=== PATIENT | female | born 1980 | race Caucasian/White ===

== ENCOUNTER 2018-07-07 07:20 | Inpatient (IN) ==
--- NOTE | 2018-07-06 18:04 | MH ---
cc: Vitor Crawley MD DATE OF ADMISSION: 07/07/2018 ADMITTING DIAGNOSIS: 1. Term . 2. Advanced paternal age. 3. Previous . HISTORY OF PRESENT ILLNESS: The patient is a 38-year-old white female, para 3-0-0-4, with an EDC of 07/05/2018 by early ultrasound. PAST OB HISTORY: Notable for two vicente deliveries and for twins in 2010. She is now post dates, admitted for repeat section. PAST SURGICAL HISTORY: Third molars in childhood, in 2010. MEDICATIONS: Vitamins. ALLERGIES: SULFA. TRANSFUSIONS: None. SOCIAL HISTORY: , employed. Alcohol, tobacco and drugs are none. FAMILY HISTORY: Noncontributory. REVIEW OF SYSTEMS: Negative. PHYSICAL EXAMINATION: GENERAL: This is a well-nourished, well-developed white female. VITAL SIGNS: Stable. HEENT: Normal. CHEST: Clear. HEART: Regular rate. BREASTS: Symmetrical. ABDOMEN: Gravid. EFW of 3100 grams. Cervix is closed. EXTREMITIES: Normal. LABORATORY DATA: Strep culture is negative. Her last ultrasound on 07/05/2018 to vertex presentation, normal fluid, but the posterior placenta. ASSESSMENT AND PLAN: She is now admitted for repeat section. While in the office, the risks and benefits, and complications were explained and accepted. MD FRANKLYN Ritter/fara , 05:40 PM , 05:44 PM
[2018-07-07 08:56] LABS: Baso % (Auto) 0.2 % (0.0-2.0); Eos # (Auto) 0.1 th/mm3 (0.0-0.4); Eos % (Auto) 1.4 % (0.0-4.0); Hematocrit 35.5 % (35.0-46.0); Hemoglobin 12.6 gm/dL (11.6-15.3); Lymph # (Auto) 1.2 th/mm3 (1.0-4.8); Lymph % (Auto) 14.9 % (9.0-44.0); Mean Corpuscular HGB Conc 35.5 % (32.0-36.0); Mean Corpuscular Hemoglobin 31.5 pg (27.0-34.0); Mean Corpuscular Volume 88.7 fL (80.0-100.0); Mono # (Auto) 0.5 th/mm3 (0.0-0.9); Mono % (Auto) 6.6 % (0.0-8.0); Neut # (Auto) 6.3 th/mm3 (1.8-7.7); Neut % (Auto) 76.9 % (16.0-70.0); Platelet Count 165 th/mm3 (150-450); Red Cell Distribution Width 14.3 % (11.6-17.2); White Blood Count 8.2 th/mm3 (4.0-11.0)
[2018-07-07] MEDS ORDERED: ceFAZolin 2 GM Premix Inj 2 GM/50 ML PIGGYBACK IV.SIG PRN (09:01)
[2018-07-07] MEDS ORDERED: Citric Acid/Sodium Citrate Liq 30 ML UDC PO SCH (09:15)
[2018-07-07] MEDS ORDERED: Morphine Sulfate PF Inj 5 MG/10 ML Ampul ONE (12:09)
[2018-07-07] MEDS ORDERED: Zolpidem Tartrate 5 MG Tablet PO PRN (12:32)
[2018-07-07] MEDS ORDERED: Senna/Docusate Sodium 8.6/50 MG Tablet PO PRN (12:32)
[2018-07-07] MEDS ORDERED: Simethicone 80 MG Chew Tablet PO PRN (12:32)
[2018-07-07] MEDS ORDERED: Oxytocin 30 Units/500ml Premix 30 UNITS/500 ML BAG IV.SIG ONE (12:32)
[2018-07-07] MEDS ORDERED: Naloxone Inj 0.4 MG/ML Vial IV.PUSH PRN (15:05)
--- NOTE | 2018-07-07 15:58 | MP ---
cc: Vitor Crawlye MD DATE OF OPERATION: 07/07/2018 PREOPERATIVE DIAGNOSES: 1. at 40 to 41 weeks. 2. Advanced maternal age. 3. Previous section. POSTOPERATIVE DIAGNOSES: 1. at 40 to 41 weeks. 2. Advanced maternal age. 3. Previous section. PROCEDURE PERFORMED: Repeat low transverse section with scar revision. ANESTHESIA: Spinal. SURGEON: Vitor Crawley MD. MARINE ELECTRICIAN: ARISTIDES Jacobo ESTIMATED BLOOD LOSS: About 500 mL. FLUIDS: 2 liters crystalloid. OBJECTIVE FINDINGS: Following induction of adequate spinal anesthesia, the patient was prepped and draped supine on the operating table, prepped and draped in usual sterile fashion, with the bladder being drained via Christopher catheterization. The old Pfannenstiel incision had experienced a postoperative infection and there was a subcutaneous defect in the middle portion. Using the knife, the old scar was excised down to the fascia, transverse position. The fascia opened transversely, stripped the muscles, rectus muscle in the midline and the peritoneum opened sharply without incident. The bladder flap was taken down sharply and retracted inferiorly with [place] blade. The lower uterine segment incised transversely with a knife and extended with blunt dissection. Membranes were ruptured with clear fluid. Baby in the LOT position. With internal grinding machine operator guidance and fundal pressure, the head delivered easily. The mouth was suctioned and the cord clamped and cut, and the baby passed to awaiting jean team, a vigorous male. Apgars were 9 and 9, weight 8 pounds 8 ounces. Cord blood for typing. The placenta was manually removed and uterine cavity cleaned with laps. Uterus was exteriorized and closed in 2 layers with running suture, first a running locking stitch of 0 Vicryl, second a running imbricating stitch of 0 Vicryl. The posterior inspection of the uterus, tubes and ovaries were normal. The uterus was then placed in the cavity. Irrigation performed. No bleeding was evident. The bladder flap was closed with a running 3-0 Vicryl. The last retractor was removed. Counts were correct and anterior peritoneum closed with running 2-0 Vicryl. At this point, the subcutaneous tissue and fascia were inspected. In the middle 2/3 of the old subcutaneous tissue, there was old necrotic fatty tissue, purplish in nature. This was excised out with the Bovie to restore new unscarred tissue. Hemostasis was obtained with the Bovie. The fascia was then closed with a running stitch of #1 PDS, cut in the midline and tied. Subcutaneous was irrigated, dusted with Andree, and closed with a running stitch of 3-0 Vicryl. Subcutaneous tissue was closed with running 3-0 Monocryl. Dermabond applied and pressure was applied. Counts were correct and the patient was awakened and taken to the recovery room in good condition. MD FRANKLYN Ritter/fabiana/gerson , 01:34 PM , 01:41 PM
[2018-07-07] MEDS ORDERED: Oxytocin 30 Units/500ml Premix 30 UNITS/500 ML BAG IV.SIG PRN (17:32)
[2018-07-07 22:28] LABS: Bilirubin,Urine Negative (Negative); Clarity,Urine Clear (Clear); Color,Urine Yellow (Yellw/Straw); Glucose,Urine (UA) Negative (Negative); Leukocyte Esterase,Urine Negative (Negative); Mucus,Urine Few /lpf (Occasional); Nitrite,Urine Negative (Negative); Specific Gravity,Urine 1.019 (1.002-1.035); Squamous Epithelial Cell,Urine <1 /hpf (0-5)
[2018-07-08 07:41] LABS: Baso # (Auto) 0.1 th/mm3 (0.0-0.2); Baso % (Auto) 0.4 % (0.0-2.0); Eos # (Auto) 0.1 th/mm3 (0.0-0.4); Eos % (Auto) 0.9 % (0.0-4.0); Hemoglobin 11.4 gm/dL (11.6-15.3); Lymph # (Auto) 1.5 th/mm3 (1.0-4.8); Lymph % (Auto) 10.2 % (9.0-44.0); Mean Corpuscular HGB Conc 34.6 % (32.0-36.0); Mean Corpuscular Hemoglobin 30.5 pg (27.0-34.0); Mean Corpuscular Volume 88.3 fL (80.0-100.0); Mean Platelet Volume 9.1 fL (7.0-11.0); Mono # (Auto) 0.8 th/mm3 (0.0-0.9); Mono % (Auto) 5.9 % (0.0-8.0); Neut % (Auto) 82.6 % (16.0-70.0); Platelet Count 179 th/mm3 (150-450); Red Blood Count 3.73 mil/mm3 (4.00-5.30); Red Cell Distribution Width 13.9 % (11.6-17.2); White Blood Count 14.5 th/mm3 (4.0-11.0)
[2018-07-08] MEDS: Ketorolac Inj 30 MG/ML (IVP) Vial IV.PUSH PRN ×3 (07:47→21:59)
[2018-07-08] MEDS ORDERED: Diphtheria/Tetanus/Pertussis Vaccine Inj 0.5 ML Syringe IM ONE (16:00)
[2018-07-08] MEDS ORDERED: Measles/Mumps/Rubella Vaccine Inj 0.5 ML Vial SQ ONE (16:00)
--- NOTE | 2018-07-09 08:36 | MD ---
cc: Vitor Crawley MD DATE OF DISCHARGE: 07/09/2018 ADMITTING DIAGNOSES: 1. Term . 2. Advanced maternal age. 3. Previous section. DISCHARGE DIAGNOSES: 1. Term . 2. Advanced maternal age. 3. Previous section. 4. Delivered. PROCEDURE: Repeat low transverse section and excision of scar tissue from the subcutaneous wound. HISTORY OF PRESENT ILLNESS: The patient is a 38-year-old white female, para 3-0-0-4 with an EDC of 07/05/2018 early ultrasound. Her course was benign. Rh type was positive, GBS was negative. History notable for 2 previous vaginal deliveries. Her third was twins delivered by . She has considered vaginal after , but became postdates and requested admission for repeat section and excision of the indurated scar. This was performed on 07/07/2018, with delivery of a viable vigorous male and excision of subcutaneous scar tissue, which may have been endometriosis. Pathology pending. The baby was a viable vigorous male, Apgars 9 and 9, weight 8 pounds 8 ounces. did well. Discharged home in excellent condition on 07/09/2018. She was carefully instructed in and postop wound instructions and care. Return to see me in 1 week. She is to call for abnormal pain, bleeding, temperature, signs of infection, or depression. She was given a script for Percocet 5 one p.o. q.4 hours p.r.n., #30. MD FRANKLYN Ritter/brendan , 08:16 AM , 08:22 AM
[2018-07-09 11:20] VITALS: BP 108/68
[2018-07-09 11:21] VITALS: PULSE 78; RESP 16; TEMP 98.7
== END 2018-07-09 16:06 | disposition home or self-care (01) | DRG 788 ==
LOC: H2E 07:20 → H1EA 15:07
PROVIDERS: ADMIT Obstetrics & Gynecology; ATTEND Obstetrics & Gynecology
CPT/HCPCS: 59025; 81001; 85025; 88305; J0131; J0690; J1885; J2274; J7120